=== PATIENT | male | born 1960 ===

== ENCOUNTER 2017-12-11 10:02 | Inpatient (IN) | payer BC ==
[~2017-12-11] VITALS: Ht 172.7 cm; Wt 74.8 kg
[2017-12-11] MEDS ORDERED: COZAAR25 MG PO (10:34)
[2017-12-13] MEDS ORDERED: AMOX1TAB5 PO (13:09)
[2017-12-13] MEDS ORDERED: PERCOCET 5-3251 EACH PO (13:09)
[2017-12-13] MEDS ORDERED: INTESTINEX680 M1 PO (13:09)
[2017-12-13] MEDS ORDERED: OMEPRAZOLE20 MG PO (13:10)
== END 2017-12-13 14:34 | disposition home or self-care (01) | DRG 340 ==
LOC: ER 10:02 → SEC-K 13:44 → O/R 13:44 → SURG 19:25
PROVIDERS: Surgery
PROC: 0W9G4ZX Drainage of Peritoneal Cavity, Percutaneous Endoscopic Approach, Diagnostic (ICD-10-PCS; 2017-12-11)
PROC: BW25ZZZ Computerized Tomography (CT Scan) of Chest, Abdomen and Pelvis (ICD-10-PCS; 2017-12-11)
PROC: 0DTJ4ZZ Resection of Appendix, Percutaneous Endoscopic Approach (ICD-10-PCS; principal; 2017-12-11 15:00)
DX: K35.33 Acute appendicitis with perforation, localized peritonitis, and gangrene, with abscess (principal)

== ENCOUNTER 2017-12-31 11:19 | Inpatient (IN) | payer BC ==
[~2017-12-31] VITALS: Ht 172.7 cm; Wt 74.8 kg
[~2017-12-31 11:19] MED LIST: AMOX1TAB5 PO; COZAAR25 MG PO; INTESTINEX680 M1 PO; OMEPRAZOLE20 MG PO; PERCOCET 5-3251 EACH PO
[2018-01-02] MEDS ORDERED: ALIGN4 MG PO (16:40)
[2018-01-02] MEDS ORDERED: OMEPRAZOLE20 M1 PO (16:45)
== END 2018-01-02 16:43 | DRG 862 ==
LOC: ER 11:19 → SEC-K 19:29 → SURG 01-02 15:33
PROC: BW25Y0Z Computerized Tomography (CT Scan) of Chest, Abdomen and Pelvis using Other Contrast, Unenhanced and Enhanced (ICD-10-PCS; principal; 2017-12-31)
PROC: BW21Y0Z Computerized Tomography (CT Scan) of Abdomen and Pelvis using Other Contrast, Unenhanced and Enhanced (ICD-10-PCS; 2018-01-01)
DX: T81.43XA Infection following a procedure, organ and space surgical site, initial encounter (principal); K65.1 Peritoneal abscess